=== PATIENT | female | born 1995 | race Caucasian/White ===

== ENCOUNTER 2016-10-31 09:24 | Emergency (ER) | payer OTHER ==
[~2016-10-31] VITALS: Ht 154.9 cm; Wt 65.9 kg
[~2016-10-31 09:24] MED LIST: LABE100T4 PO; PREN1TAB80 PO
[2016-10-31 09:28] VITALS: BP 125/76; PULSE 76; RESP 16; O2SAT 100
--- NOTE | 2016-10-31 09:40 | ED.REPORT ---
HPI-Abd Pain F Under 40 Date of Service Oct 31, 2016 ED Provider: Thomas Theodore Pt is an 18 week 21 y/o healthy female presenting to the ED c/o lower abdominal pain onset last night. She had similar pain 3 days ago which resolved after 1 hour. She c/o associated nausea, urinary pressure, generalized weakness. She denies dysuria, urinary frequency, vaginal bleeding, vomiting, diarrhea, fever, chills, SOB. Nursing Notes Stated Complaint: POSSIBLE UTI Chief Complaint: Female Abdominal Pain Nursing Notes Reviewed: Yes Allergies: Coded Allergies: No Known Allergies (Unverified Allergy, Unknown, 11/13/14) Uncoded Allergies: BEE (Allergy, Severe, 10/31/16) Scheduled Nitrofurantoin Monohyd/M-Cryst (MacroBid) 100 Mg Capsule 100 MG PO BID Vits W-Ca,Fe,FA(<1Mg) ( Vitamins) 1 Each Tablet 1 EACH PO DAILY Scheduled PRN Famotidine (Pepcid) 20 Mg Tablet 20 MG PO BID PRN PRN For Dyspepsia or Heartburn General Time Seen by MD: 09:40 Chief Complaint Abdominal pain Hx Obtained From: Patient Arrived By: Walk-in Sudden in Onset?: No Onset Occurred: 1 - 4 hours ago Symptom Duration: Since onset Location: : Abdomen lower Quality: Painful Radiation: : Does not radiate Severity: Current: Mild Severity: Maximum: Mild Recent Healthcare: No recent doctor visit Similar Sx Previous: No Past Medical History Past Medical History Denies Past Surgical History None reported Smoking History Never Smoker Social History Alcohol Use: Denies alcohol use Ambulatory Status Independent Review of Systems Review of Systems Note: +urinary pressure Constitutional: Denies: Chills, Fever Respiratory: Denies: Non-productive cough, Shortness of breath Cardiovascular: Denies: Chest pain, Dyspnea on exertion GI: Reports: Abdominal pain, Nausea, Denies: Diarrhea, Vomiting Female: Denies: Dysuria, Urinary frequency Complete sys rev & neg: except as marked. Physical Exam Initial Vital Signs Vital Signs (First) Date Time Temp Pulse Resp B/P Pulse Ox O2 Delivery O2 Flow Rate FiO2 10/31/16 09:28 36.2 76 16 125/76 100 Room Air Initial VS: Reviewed, Vital signs normal Head / Eyes: Atraumatic, Normocephalic, PERRL ENT: Mucous membranes moist, Conjunctiva normal, No scleral icterus Neck: Supple, Full range of motion Extremities: Vascular intact, Neuro intact, No swelling, No tenderness Skin: Warm, Dry, No cyanosis Neurologic: Alert, Oriented, Nonfocal Psychiatric: Mood/affect normal, Behavior normal, Normal thought content General/Constitutional: Awake, Alert, No acute distress, Well appearing, Cooperative, Not toxic appearing Respiratory / Chest: Atraumatic, Breath sounds NL, Breath sounds = bilat, No respiratory distress, No rales, No rhonchi, No wheezing, No retractions, No stridor, No chest tenderness, No chest wall deformity, No crepitus Cardiovascular: Heart rate NL, Regular rhythm, Heart sounds NL, No gallop, No murmurs, No rubs, Cap refill not delayed, Peripheral circulation NL Abdomen: Atraumatic, Soft, No guarding, No rebound, No palpable mass Tenderness/Guarding/Rebound: Positive: Tender epigastric (mild) Uterine fundus 1 fingerbreadth below umbilicus Back: Full range of motion, Painless range of motion Interpretation & Diagnostics Lab Results Interpretation Result Diagram: 10/31/16 1000 10/31/16 1000 Test 10/31/16 10:00 10/31/16 10:30 White Blood Count 8.8th/mm3 (3.8-10.1) Red Blood Count 4.71mil/mm3 (3.90-5.20) Hemoglobin 13.1g/dL (12.0-15.6) Hematocrit 38.7% (35.0-46.0) Mean Corpuscular Volume 82.2fL (81-100) Mean Corpuscular Hemoglobin 27.8pg (27.0-35.0) Mean Corpuscular Hemoglobin Concent 33.9% (32.0-37.0) Red Cell Distribution Width 14.5% (12.3-15.4) Platelet Count 183bil/L (150-400) Neutrophils (%) (Auto) 77.1% (40-74) Lymphocytes (%) (Auto) 14.4% (14-46) Monocytes (%) (Auto) 7.0% (4-12) Eosinophils (%) (Auto) 1.0% (0-5) Basophils (%) (Auto) 0.2% (0-3) Sodium Level 135mEq/L (134-144) Potassium Level 4.0mEq/L (3.5-5.2) Chloride Level 101mEq/L (97-108) Carbon Dioxide Level 21mmol/L (18-29) Blood Urea Nitrogen 7mg/dL (6-20) Creatinine 0.47mg/dL (0.57-1.00) Estimat Glomerular Filtration Rate 237mL/min (>59) Glucose Level 88mg/dL (60-99) Lactic Acid Level 0.9mmol/L (0.4-2.0) Calcium Level 9.3mg/dL (8.5-10.1) Total Bilirubin 0.2mg/dL (0.0-1.2) Aspartate Amino Transf (AST/SGOT) 13U/L (0-50) Alanine Aminotransferase (ALT/SGPT) 11U/L (0-32) Alkaline Phosphatase 52U/L (25-150) Total Protein 6.9g/dL (6.4-8.4) Albumin 4.1g/dL (3.4-5.0) Lipase 31U/L (13-60) Urine Color Yellow (YELLOW) Urine Appearance Hazy (CLEAR,HAZY) Urine pH 8.0 (5.0-8.0) Urine Specific [place] 1.012 (1.003-1.035) Urine Protein Negativemg/dL (NEG,TRACE) Urine Glucose (UA) Negativemg/dL (NEGATIVE) Urine Ketones Negativemg/dL (NEGATIVE) Urine Occult Blood Negative (NEGATIVE) Urine Nitrite Negative (NEGATIVE) Urine Bilirubin Negative (NEGATIVE) Urine Urobilinogen Normalmg/dL (NORMAL) Urine Leukocyte Esterase Small (NEGATIVE) Urine RBC 0-2/hpf (0-2) Urine WBC 6-10/hpf (0-5) Urine Epithelial Cells Many/hpf (NONE-MOD) Urine Crystals None seen (NONE SEEN) Urine Bacteria Few/hpf (NONE-FEW) Urine Hyaline Casts None/lpf (NONE) Urine Granular Casts None seen (NONE SEEN) Urine Waxy Casts None seen (NONE SEEN) Urine Red Blood Cell Casts None seen (NONE SEEN) Urine White Blood Cell Casts None seen (NONE SEEN) Urine Mucus None seen (None Seen) Urine Trichomonas None seen (NONE SEEN) Urine Yeast None (NONE SEEN) Urinalysis Comment None Urine Culture Reflexed Indicated Re-Eval/Medical Decision Med Decision/Clinical Course 21-year-old multigravida female at 18 weeks of presents with urinary discomfort and abdominal pain. On exam it appears the most for pain is in the epigastric region although she was complaining of lower abdominal pain in her interview. GI cocktail improved her symptoms significantly. UA shows leukocytosis. Patient will be treated with Macrobid for UTI and I gave her a small prescription for Pepcid to use as needed for reflux symptoms which can be common in . Patient notes she continues to feel baby move and has follow-up with her OB. blood tests were unremarkable here. Patient's questions were answered and she understands and agrees with the plan Re-Evaluation/Progress : Time of Eval: 11:52 Re-Evaluation/Progress Note: Pt rechecked. Informed pt of plan for treatment. Pt understands and agrees with plan for treatment. F/U and RTER warnings given. All questions addressed. Discharge & Departure Primary Impression: UTI (urinary tract infection) Urinary tract infection type: site unspecified Hematuria presence: without hematuria Qualified Code: N39.0 - Urinary tract infection, site not specified Additional Impression: GERD (gastroesophageal reflux disease) Esophagitis presence: without esophagitis Qualified Code: K21.9 - Gastro- esophageal reflux disease without esophagitis Disposition: Home Discharge Condition All VS Reviewed: Yes Condition: Stable Patient Instructions: Gastroesophageal Reflux Disease (ED), Urinary Tract Infection in Women (ED) Additional Instructions: Your urine analysis showed signs of urinary tract infection. The GI cocktail relieving some of your pain indicates you may have reflux disease. Take Famotidine as needed for upper abdominal pain or reflux. Take the 7 day course of Macrobid. Return to the emergency department for severe pain, persistent vomiting, high fever, or for other concerning symptoms. Follow-up with your doctor next week. Referrals: Olu Blackman MD (PCP) Scrib[facility] Attestation Portions of this note were transcribed by Robert Rogers. I, Dr. Theodore personally performed the history, physical exam and medical decision-making; I reviewed and confirmed the accuracy of the information in the transcribed note. Signed by Nancy Newton, 10/31/16 - 1000 copies to: Jovanny Beltrán MD, Gary R DO Oct 31, 2016 09:40 ROBERT ROGERS Oct 31, 2016 09:49
[2016-10-31] MEDS ORDERED: LidocaineVisc 2%:Antacid 1:1 10 mL Syringe PO ONE (09:50)
[2016-10-31 10:10] LABS: BASOPHILS % (AUTO) 0.2 % (0-3); Mean Corpuscular Hemoglobin 27.8 pg (27.0-35.0); Mean Corpuscular Volume 82.2 fL (81-100); NEUTROPHILS % (AUTO) 77.1 % (40-74); Platelet Count 183 bil/L (150-400)
[2016-10-31 10:53] VITALS: BP 103/61; PULSE 73; RESP 16; O2SAT 99
[2016-10-31 11:21] LABS: APPEARANCE,URINE HAZY (CLEAR,HAZY); COLOR,URINE YELLOW (YELLOW); OCCULT BLOOD,URINE NEGATIVE (NEGATIVE); UROBILINOGEN,URINE NORMAL (NORMAL)
[2016-10-31] MEDS ORDERED: FAMO20T PO (11:52)
[2016-10-31] MEDS ORDERED: NITR100 PO (11:52)
[2016-10-31 12:16] VITALS: BP 100/68; PULSE 76; RESP 16; O2SAT 98
[2016-10-31 12:24] VITALS: BP 100/68; PULSE 76; RESP 16; O2SAT 98
== END 2016-10-31 12:25 | disposition home or self-care (01) ==
LOC: SED 09:24
DX: O23.42 Unspecified infection of urinary tract in pregnancy, second trimester (principal); O99.612 Diseases of the digestive system complicating pregnancy, second trimester; K21.9 Gastro-esophageal reflux disease without esophagitis; Z3A.18 18 weeks gestation of pregnancy